=== PATIENT | male | born 1965 | race Caucasian/White ===

== ENCOUNTER 2017-03-06 20:15 | Emergency (ER) | payer OTHER ==
[~2017-03-06] VITALS: Ht 170.2 cm; Wt 36.8 kg
[2017-03-06 20:32] VITALS: BP 121/78; PULSE 70; O2SAT 99
[2017-03-06 21:48] LABS: BASOPHILS % (AUTO) 0.9 % (0-3); EOSINOPHILS % (AUTO) 7.8 % (0-5); MONOCYTES % (AUTO) 10.2 % (4-12); Mean Corpuscular Hemoglobin 31.9 pg (27.0-35.0); Mean Corpuscular Volume 92.2 fL (81-100); NEUTROPHILS % (AUTO) 46.9 % (40-74); Platelet Count 223 bil/L (150-400)
--- NOTE | 2017-03-06 22:20 | ED.REPORT ---
HPI-Rash / Abscess Date of Service Mar 06, 2017 ED Provider: Robbie Reyes MD Pt is a 51 year old male with a hx of EtOH abuse presenting to the ED from [facility] complaining of pain, redness and swelling to the back of his head onset 3 days ago, worsening since. The pain radiates down the back of his neck. Associated symptoms include cloudy vision, generalized itching, dizziness, and nausea with dry heaves. Denies fever, chills, SOB, wheezing, cough, abdominal pain or diarrhea. The injury initially occurred a few weeks ago , when he accidentally hit himself in the back of the head with a rock. The wound had healed, and then the swelling began about 3 days ago. Nursing Notes Stated Complaint: INFECTION/CYST ON BACK OF HEAD, DIZZY, PAIN Chief Complaint: General Complaint Nursing Notes Reviewed: Yes Allergies: Coded Allergies: Penicillins (Verified Allergy, Unknown, Dizziness, 01/30/16) reports "high temperature" No Active Prescriptions or Reported Meds General Time Seen by MD: 22:13 Chief Complaint Abscess Hx Obtained From: Patient Arrived By: Walk-in Onset Occurred: 3 days ago Symptom Duration: Since onset Location: : Scalp Quality: Painful Severity: Current: Moderate Severity: Maximum: Severe Recent Healthcare: No recent doctor visit, No recent hospitalization Similar Sx Previous: No Past Medical History Past Medical History alcohol abuse left umbilical hernia Reports: Diverticulitis Past Surgical History hernia repair Family History noncontributory Smoking History Current Every Day Smoker Social History Alcohol Use: >5 per day Other Social History: Homeless Ambulatory Status Independent Review of Systems Constitutional: Denies: Chills, Fever Respiratory: Denies: Non-productive cough, Shortness of breath, Wheezing GI: Reports: Nausea, Denies: Abdominal pain, Diarrhea Skin: Reports Itching, Reports Rash, Reports Swelling Complete sys rev & neg: except as marked. Neurologic: Reports: Dizziness, Vision change Physical Exam Initial Vital Signs Vital Signs (First) Date Time Temp Pulse Resp B/P Pulse Ox O2 Delivery O2 Flow Rate FiO2 03/06/17 20:32 36.7 70 121/78 99 Room Air 03/06/17 23:31 17 Initial VS: Reviewed, Vital signs normal ENT: Mucous membranes moist, Conjunctiva normal, No scleral icterus Neck: Supple, Non-tender, Full range of motion Respiratory: Breath sounds normal, Clear to auscultation, No respiratory distress Cardiovascular: Regular rate & rhythm, Heart sounds normal, Intact distal pulses Abdomen / GI: Soft, Non-tender, No guarding, No rebound, No distention Extremities: Vascular intact, Neuro intact, No swelling, No tenderness Neurologic: Alert, Oriented, Nonfocal Psychiatric: Mood/affect normal, Behavior normal, Normal thought content General/Constitutional: Awake, Alert, No acute distress Skin: Warm, Dry, Intact 2cm tender area with erythema and swelling to the occipital region of the scalp. Occipital adenopathy Interpretation & Diagnostics Lab Results Interpretation Result Diagram: 03/06/17213903/06/172139 Test 03/06/17 21:40 White Blood Count 10.5th/mm3 (3.8-10.1) Red Blood Count 5.01mil/mm3 (4.40-5.80) Hemoglobin 16.0g/dL (13.8-17.2) Hematocrit 46.2% (41.0-50.0) Mean Corpuscular Volume 92.2fL (81-100) Mean Corpuscular Hemoglobin 31.9pg (27.0-35.0) Mean Corpuscular Hemoglobin Concent 34.6% (32.0-37.0) Red Cell Distribution Width 13.6% (12.3-15.4) Platelet Count 223bil/L (150-400) Neutrophils (%) (Auto) 46.9% (40-74) Lymphocytes (%) (Auto) 34.0% (14-46) Monocytes (%) (Auto) 10.2% (4-12) Eosinophils (%) (Auto) 7.8% (0-5) Basophils (%) (Auto) 0.9% (0-3) Sodium Level 142mEq/L (134-144) Potassium Level 5.0mEq/L (3.5-5.2) Chloride Level 104mEq/L (97-108) Carbon Dioxide Level 26mmol/L (18-29) Blood Urea Nitrogen 14mg/dL (6-24) Creatinine 0.77mg/dL (0.76-1.27) Estimat Glomerular Filtration Rate 114mL/min (>59) Glucose Level 77mg/dL (60-99) Calcium Level 9.7mg/dL (8.5-10.1) Total Bilirubin 0.3mg/dL (0.0-1.2) Aspartate Amino Transf (AST/SGOT) 31U/L (0-50) Alanine Aminotransferase (ALT/SGPT) 40U/L (0-44) Alkaline Phosphatase 66U/L (25-150) Total Protein 8.0g/dL (6.4-8.4) Albumin 4.5g/dL (3.4-5.0) Hold Jean Top Tube Received (Received) Lab Results Interpretation: Mild white blood count elevation Procedures Incision & Drainage Abscess I & D Abscess: 2 cm abscess to the scalp Time: 22:29 Procedure Performed by: ED physician Consent / Setup / Site Prep: Consent from patient, Time-out performed, Hand hygiene observed, Stand sterile technique, Standard surgical scrub, Sterile drapes applied Location of Abscess: Occipital region Skin Preparation Agent: Normal saline Local Anesthesia: Lidocaine 1%, Bupivacaine 0.5% Incised Abscess with Scalpel: #10 Pus Drained: Small, Bloody Irrigation: Yes, Copious Post-Procedure / Complications: Packing placed, Drain placed, Culture obtained, Gram stain ordered, Dressing applied, No complications, Condition improved, Tolerated procedure well, Patient stable Re-Eval/Medical Decision Med Decision/Clinical Course 51-year-old male seen by me earlier in the outpatient clinic at [facility] for an abscess on the back of his head. He was started on clindamycin and arrangements were made for him to come here for I&D. A small amount of fluid was drained. No wick was placed. He will continue clindamycin antibiotics. Re-Evaluation/Progress : Time of Eval: 22:29 Patient Status: Condition improved Re-Evaluation/Progress Note: Performed I&D. Pt tolerated procedure well. Discussed plan for discharge. Pt understands and agrees. Counseled Regarding: Diagnosis, Lab results, Need for follow-up, When/why to return to ED Discharge & Departure Impression: Primary Impression: Abscess Disposition: Home Discharge Condition All VS Reviewed: Yes Condition: Improved Patient Instructions: Abscess Incision and Drainage (DC) Additional Instructions: The abscess was drained of a small amount of pus. No drain as needed. The pus was cultured. Clindamycin 300 mg 3 times a day, first dose given in the emergency room and the remainder will be started at [facility] tomorrow. Referrals: OTHER,PHYSICIAN (PCP) (Family) Scribe Attestation Portions of this note were transcribed by Edy Foster. I, Dr. Reyes personally performed the history, physical exam and medical decision-making; I reviewed and confirmed the accuracy of the information in the transcribed note. Signed by: Meghan Post, 03/06/2017. Robbie Reyes MD Mar 06, 2017 22:20 EDY FOSTER Mar 06, 2017 22:27
[2017-03-06 23:31] VITALS: BP 120/79; RESP 17; O2SAT 100
== END 2017-03-06 23:33 | disposition home or self-care (01) ==
LOC: SED 20:15
DX: L02.811 Cutaneous abscess of head [any part, except face] (principal); F17.200 Nicotine dependence, unspecified, uncomplicated; Z88.0 Allergy status to penicillin